=== PATIENT | female | born 1945 | race Caucasian/White ===

== ENCOUNTER → 2023-10-17 13:24 | Outpatient (REF) | payer OTHER, SELFPAY | LOC: HWRAD 13:24 | PROVIDERS: ATTENDING PHYSICIAN Internal Medicine Hematology & Oncology; FAMILY PHYSICIAN Internal Medicine | DX: C18.2 Malignant neoplasm of ascending colon (principal) | CPT/HCPCS: 71260; 74177; Q9967 ==

== ENCOUNTER → 2023-10-20 12:46 | Outpatient (REF) | payer OTHER, SELFPAY ==
[2023-10-20 13:35] LABS: % Basophils 0.9 % (0-2); % Immature Granulocytes 0.8 % (0-0.5); % Lymphocytes 19.9 % (20.5-51.1); % Neutrophils 72.4 % (42.2-75.2); Absolute Basophils 0.1 10^3/uL (0-0.2); Absolute Eosinophils 0.1 10^3/uL (0-0.7); Absolute Immature Granulocytes 0.1 10^3/uL (0-0.05); Absolute Lymphocytes 2.1 10^3/uL (1.2-3.4); Absolute Monocytes 0.5 10^3/uL (0.1-0.6); Absolute Neutrophils 7.6 10^3/uL (1.4-6.5); Hematocrit 38.3 % (37.0-47.0); Hemoglobin 12.3 g/dL (12.0-16.0); Mean Corp Hgb Conc. 32.1 g/dL (33.0-37.0); Mean Corpuscular Hgb 33.2 pg (27.0-31.0); Mean Corpuscular Volume 103.2 fL (81.0-99.0); Mean Platelet Volume 9.4 fL (7.4-10.4); Nucleated Red Blood Cells % 0 %; Platelet Count 326 10^3/uL (130-400); Red Blood Cell Count 3.71 10^6/uL (4.20-5.40); Red Cell Dist. Width 15.5 % (11.5-14.5); White Blood Cell Count 10.4 10^3/uL (4.8-10.8)
[2023-10-20 14:42] LABS: Protein/creatinine Ratio 0.1; Urine Protein 23 mg/dl
[2023-10-20 15:06] LABS: ALT (SGPT) 46 U/L (0-35); AST (SGOT) 47 U/L (14-36); Alkaline Phosphatase 149 U/L (38-126); Blood Urea Nitrogen 7 mg/dl (7-17); Calcium 9.8 mg/dl (8.4-10.2); Carbon Dioxide 29 mmol/L (22-30); Chloride 104 mmol/L (98-107); Glucose 94 mg/dl (70-99); Potassium 3.7 mmol/L (3.5-5.1); Sodium 140 mmol/L (135-145); Total Bilirubin 0.5 mg/dl (0.2-1.3); Total Protein 6.7 g/dl (6.3-8.2); eGFR > 60.00
== END ==
LOC: REG 12:46
PROVIDERS: ATTENDING PHYSICIAN Internal Medicine Hematology & Oncology; FAMILY PHYSICIAN Internal Medicine
DX: C18.2 Malignant neoplasm of ascending colon (principal)
CPT/HCPCS: 36415; 80053; 82570; 84156; 85025

== ENCOUNTER 2023-11-11 10:52 | Emergency (ER) | payer OTHER, SELFPAY ==
[2023-11-11 10:57] VITALS: BP 128/83
--- NOTE | 2023-11-11 13:57 | ED.GENMED ---
History of Present Illness
General
Chief Complaint: Abdominal Symptoms
Source: patient
Exam Limitations: none
Time Seen by Provider: 11/11/23 13:56
Nursing documentation reviewed up to this point in time: agreed with
Travel History
Have you had any contact with someone who has COVID-19?: No
Do you have any symptoms of coronavirus? Fever > 100 degrees, chills, cough, shortness of breath, sore throat, loss of taste or smell, muscle aches, or headache?: No
History of Present Illness
History of Present Illness:
78-year-old female presents with right lower quadrant pain, nausea and vomiting yesterday whenever she tried to eat or drink.
History of HLD, colitis, IBS, chronic diarrhea and takes Imodium, hypothyroid, depression, appendectomy, diagnosed with colon cancer 03/2022, followed by [facility] Dr. Waller. Right upper chest access port for chemotherapy which she gets
every 2 weeks. Last chemo was last week. Presents stating her last bowel movement was 2 mornings ago, liquid diarrhea, no blood. Dr. Waller told her that he was concerned about a bowel obstruction
Past History
Past History
ED Past Medical History: None
ED Past Surgical History: None
Social History
Tobacco: Non-smoker
Review of Systems
Review of Systems
Allergies reviewed?: Yes
All Other Systems: ROS reviewed and negative except as documented in HPI and ROS
Constitutional: Denies fever or chills
Cardiac: Denies palpitations
ABD/GI: Reports abdominal pain, nausea, vomiting (vomited x 2 yesterday, none today), diarrhea and anorexia; Denies bloody stools or black stools
: Denies dysuria or difficulty voiding
Musculoskeletal: Reports no symptoms
Skin: Reports no symptoms
Neurological: Reports no symptoms
Phy Exam
Physical Exam
Physical Exam:
GENERAL: No acute distress. A&Ox3.
CONSTITUTIONAL: Afebrile.
EYES: Clear, conjunctivae normal
ENMT: moist mucus membranes, Pharynx nl
RESPIRATORY: Regular respirations, nonlabored, lungs clear.
CARDIOVASCULAR: Regular rate and rhythm, no murmurs, no rubs.
GI: Soft, generally mildly tender, more so in the right lower quadrant. No audible BS, nondistended
MUSCULOSKELETAL: Moves with ease. Well perfused.
SKIN: Warm, dry, venous access port right upper chest wall pink
PSYCH: Normal mood and affect. Well kept, interactive and appropriate
NEUROLOGIC: Awake, alert and oriented. No focal neurological deficits
Course
Orders/Labs/Results
Orders:
Orders
11/11/23 14:17
0.9% Sodium Chloride 500 ml [Nss] 500 ml IV BOLUS
11/11/23 14:23
CT Abd/Pel (IV only)-DH only Urgent
Comment: concern for obstruction per Pcp
Reason For Exam: colon ca, pain, n/v,
11/11/23 14:37
Complete Blood Count/With Diff Urgent
Comprehensive Metabolic Panel Urgent
Lipase Urgent
Abnormal Lab Results
11/11/23
14:37
WBC 14.3 H 10^3/uL
(4.8-10.8)
RBC 3.88 L 10^6/uL
(4.20-5.40)
MCV 101.8 H fL
(81.0-99.0)
MCH 33.0 H pg
(27.0-31.0)
MCHC 32.4 L g/dL
(33.0-37.0)
Abs Immat Gran (auto) 0.2 H 10^3/uL
(0-0.05)
Absolute Neuts (auto) 11.1 H 10^3/uL
(1.4-6.5)
Immature Gran % 1.2 H %
(0-0.5)
Neutrophils % 77.7 H %
(42.2-75.2)
Lymphocytes % 14.6 L %
(20.5-51.1)
Glucose 105 H mg/dl
(70-99)
Alkaline Phosphatase 130 H U/L
(38-126)
11/11/23 14:37
11/11/23 14:37
Vital Signs
Initial and Last Documented VS:
Initial Vital Signs
Temp Pulse Resp BP Pulse Ox
98.0 F 95 18 128/83 97
11/11/23 10:57 11/11/23 10:57 11/11/23 10:57 11/11/23 10:57 11/11/23 10:57
Last Documented Vital Signs
Temp Pulse Resp BP Pulse Ox
98.0 F 89 22 129/67 95
11/11/23 10:57 11/11/23 18:48 11/11/23 18:48 11/11/23 18:48 11/11/23 18:48
MDM/Problems Addressed
Differential Diagnosis Includes:
Bowel obstruction
MDM/Problems Addressed:
78-year-old female presents with right lower quadrant pain, nausea and vomiting yesterday whenever she tried to eat or drink.
History of HLD, colitis, IBS, chronic diarrhea and takes Imodium, hypothyroid, depression, appendectomy, diagnosed with colon cancer 03/2022, followed by [facility]ologist Dr. Waller. Right upper chest access port for chemotherapy which she gets
every 2 weeks. Last chemo was last week. Presents stating her last bowel movement was 2 mornings ago, liquid diarrhea, no blood. Dr. Waller told her that he was concerned about a bowel obstruction
Afebrile, NAD
11/11/2023 1538 PM
CBC: WBC 14.3
CMP: No clinically significant abnormality
patient awaiting CT scan
11/11/[address] results discussed with Dr. Sandhu who agrees there is no bowel obstruction
Patient drinking aniceto malka and eating crackers, denies nausea
Message texted to Oncology Dr. Saravia to have someone from office reach out to her tomorrow to see how she is doing. She will start taking her stool softeners again. Was to to not take anything else for constipation.
*Critical Care Note
Total Time (30-74mins, 75-104mins- exclusive of procedures): Not Applicable
ED Attending Note
-
Portions of this chart may have been created with voice recognition software.� Occasional wrong word or��sound alike� substitutions may have occurred due to the inherent limitations of voice recognition software.
Discharge Plan
Departure
Patient Disposition: Home (Routine Discharge)
Date of Disposition: 11/11/23
Time of Disposition: 18:23
Patient with high blood pressure during this ER visit?: No
Condition: Fair
Discharge Problem:
Nausea & vomiting, Constipation
Instructions: Clear Liquid Diet, [place]ah Diet, Nausea and Vomiting, Adult (DC)
Prescriptions:
No Action
multivitamin Tablet
1 tab PO DAILY
atorvastatin 10 mg Tablet
10 mg PO DAILY
levothyroxine 75 mcg Tablet
75 mcg PO DAILY
temazepam 15 mg Capsule
15 mg PO HS PRN (Reason: sleeping)
bupropion HCl 300 mg Tablet Extended Release 24 Hr
300 mg PO DAILY
seiyqhyf-urqc-jumymg-hyalur ac 171-987-30-2 mg Capsule
1 cap PO DAILY
PreserVision AREDS 14,320-226-200 ohdo-ly-qccq Capsule
1 cap PO BID
cholecalciferol (vitamin D3) [Vitamin D3] 50 mcg (2,000 unit) Tablet
50 mcg PO DAILY
Avastin
1 dose LEFT EYE DIRECTED
vitamin B complex Capsule
1 cap PO DAILY
Cbd Oil
1 dose sublingual DAILY
PreserVision AREDS-2 250-90-40-1 mg Capsule
1 tab PO BID
Referrals:
David Waller, DO [Active] - Tomorrow
Deomnd Babin, DO [Family Provider] -
Activity Restrictions/Additional Instructions:
As we discussed, your CT scan shows no obstruction or blockage.
Use your Zofray (Ondansetron) as directed.
Start daily stool softeners again
I sent a message to the applications engineer oncology Dr. Saravia asking if someone from the office would reach out to you tomorrow to see how you are doing.
If you don't hear from them by noon, call the office and give an update.
Very small frequent meals may help. Clear liquids then bland diet and advance as tolerated.
Return here immediately for abdominal pain, repeated vomiting, fever or feeling worse in any way.
Interventions
Interventions:
*Risk Screen - Suicide Last Done: 11/11/23 14:23
*General Assessment Last Done: 11/11/23 14:23
*Neglect/Abuse Screening Last Done: 11/11/23 14:23
ED- Fall Risk Assessment Last Done: 11/11/23 14:38
*ED COVID-19 Vaccine History Last Done: 11/11/23 14:23
*Nursing Disposition Last Done: 11/11/23 18:48
DB-Osirdt-Kxakbyqzjd Assessment Last Done: 11/11/23 14:27
Discharge Date and Time
Discharge Date/Time: 11/11/23 18:50
[2023-11-11 14:22] VITALS: BMI 27.4
[2023-11-11] MEDS: NSS 500 IV (14:44)
[2023-11-11 14:48] LABS: % Basophils 0.4 % (0-2); % Immature Granulocytes 1.2 % (0-0.5); % Lymphocytes 14.6 % (20.5-51.1); % Monocytes 4.1 % (1.7-9.3); % Neutrophils 77.7 % (42.2-75.2); Absolute Basophils 0.1 10^3/uL (0-0.2); Absolute Eosinophils 0.3 10^3/uL (0-0.7); Absolute Immature Granulocytes 0.2 10^3/uL (0-0.05); Absolute Lymphocytes 2.1 10^3/uL (1.2-3.4); Absolute Monocytes 0.6 10^3/uL (0.1-0.6); Absolute Neutrophils 11.1 10^3/uL (1.4-6.5); Hematocrit 39.5 % (37.0-47.0); Hemoglobin 12.8 g/dL (12.0-16.0); Mean Corp Hgb Conc. 32.4 g/dL (33.0-37.0); Mean Corpuscular Volume 101.8 fL (81.0-99.0); Mean Platelet Volume 10.1 fL (7.4-10.4); Nucleated Red Blood Cells % 0 %; Platelet Count 249 10^3/uL (130-400); Red Blood Cell Count 3.88 10^6/uL (4.20-5.40); Red Cell Dist. Width 14.3 % (11.5-14.5); White Blood Cell Count 14.3 10^3/uL (4.8-10.8)
[2023-11-11 15:03] LABS: ALT (SGPT) 19 U/L (0-35); AST (SGOT) 25 U/L (14-36); Albumin 3.9 g/dl (3.5-5.0); Alkaline Phosphatase 130 U/L (38-126); Blood Urea Nitrogen 12 mg/dl (7-17); Calcium 9.6 mg/dl (8.4-10.2); Carbon Dioxide 28 mmol/L (22-30); Chloride 101 mmol/L (98-107); Estimated Creatinine Clearance 68 ml/min; Glucose 105 mg/dl (70-99); Potassium 4.1 mmol/L (3.5-5.1); Sodium 138 mmol/L (135-145); Total Bilirubin 0.7 mg/dl (0.2-1.3); Total Protein 6.9 g/dl (6.3-8.2); eGFR > 60.00
[2023-11-11 15:42] LABS: Lipase 77 U/L (23-300)
[2023-11-11 18:47] VITALS: BP 129/67
[2023-11-11 18:48] VITALS: BP 129/67
== END 2023-11-11 18:50 | disposition home or self-care (01) ==
LOC: EMR 10:52
PROVIDERS: Registered Nurse; EMERGENCY PHYSICIAN Emergency Medicine; FAMILY PHYSICIAN Internal Medicine
DX: R11.2 Nausea with vomiting, unspecified (principal); K59.00 Constipation, unspecified; E78.5 Hyperlipidemia, unspecified; E03.9 Hypothyroidism, unspecified; F32.A Depression, unspecified
CPT/HCPCS: 99285; 96360; 74177; 80053; 83690; 85025; Q9967

== ENCOUNTER → 2023-11-28 11:28 | Outpatient (REF) | payer OTHER, SELFPAY ==
[2023-11-28 12:37] LABS: % Basophils 2.1 % (0-2); % Eosinophils 3.3 % (0-6); % Immature Granulocytes 0.2 % (0-0.5); % Lymphocytes 35.7 % (20.5-51.1); % Monocytes 7.9 % (1.7-9.3); % Neutrophils 50.8 % (42.2-75.2); Absolute Basophils 0.1 10^3/uL (0-0.2); Absolute Eosinophils 0.2 10^3/uL (0-0.7); Absolute Lymphocytes 1.7 10^3/uL (1.2-3.4); Absolute Monocytes 0.4 10^3/uL (0.1-0.6); Absolute Neutrophils 2.4 10^3/uL (1.4-6.5); Hematocrit 38.8 % (37.0-47.0); Hemoglobin 12.8 g/dL (12.0-16.0); Mean Corpuscular Hgb 33.3 pg (27.0-31.0); Nucleated Red Blood Cells % 0 %; Platelet Count 224 10^3/uL (130-400); Red Blood Cell Count 3.84 10^6/uL (4.20-5.40); Red Cell Dist. Width 13.8 % (11.5-14.5); White Blood Cell Count 4.8 10^3/uL (4.8-10.8)
[2023-11-28 12:38] LABS: Urine Protein 8 mg/dl
[2023-11-28 12:47] LABS: ALT (SGPT) 20 U/L (0-35); AST (SGOT) 26 U/L (14-36); Albumin 4.4 g/dl (3.5-5.0); Alkaline Phosphatase 124 U/L (38-126); Blood Urea Nitrogen 11 mg/dl (7-17); Calcium 9.6 mg/dl (8.4-10.2); Carbon Dioxide 27 mmol/L (22-30); Chloride 101 mmol/L (98-107); Glucose 106 mg/dl (70-99); Potassium 3.7 mmol/L (3.5-5.1); Sodium 138 mmol/L (135-145); Total Bilirubin 0.5 mg/dl (0.2-1.3); Total Protein 7.3 g/dl (6.3-8.2); eGFR > 60.00
[2023-11-28 13:17] LABS: CEA 11.2 ng/ml
== END ==
LOC: REG 11:28
PROVIDERS: ATTENDING PHYSICIAN Internal Medicine Hematology & Oncology
DX: C18.2 Malignant neoplasm of ascending colon (principal)
CPT/HCPCS: 36415; 80053; 82378; 82570; 84156; 85025

== ENCOUNTER → 2024-01-15 14:20 | Outpatient (REF) | payer OTHER, SELFPAY ==
[2024-01-15 15:57] LABS: ALT (SGPT) 14 U/L (0-35); AST (SGOT) 21 U/L (14-36); Albumin 3.5 g/dl (3.5-5.0); Alkaline Phosphatase 95 U/L (38-126); Blood Urea Nitrogen 12 mg/dl (7-17); Calcium 9.2 mg/dl (8.4-10.2); Carbon Dioxide 26 mmol/L (22-30); Chloride 107 mmol/L (98-107); Glucose 83 mg/dl (70-99); Potassium 3.3 mmol/L (3.5-5.1); Sodium 141 mmol/L (135-145); Total Bilirubin 0.6 mg/dl (0.2-1.3); Total Protein 5.8 g/dl (6.3-8.2); eGFR > 60.00
== END ==
LOC: OIDL 14:20
PROVIDERS: ATTENDING PHYSICIAN Internal Medicine Hematology & Oncology
DX: C18.2 Malignant neoplasm of ascending colon (principal)
CPT/HCPCS: 80053

== ENCOUNTER → 2024-01-21 12:51 | Outpatient (REF) | payer OTHER, SELFPAY | LOC: HWRAD 12:51 | PROVIDERS: ATTENDING PHYSICIAN Internal Medicine Hematology & Oncology; FAMILY PHYSICIAN Internal Medicine | DX: C18.2 Malignant neoplasm of ascending colon (principal) | CPT/HCPCS: 71260; 74177; Q9967 ==